=== PATIENT | female | born 1980 | race African-American/Black ===

== ENCOUNTER 2022-04-06 04:28 | Day surgery (SDC) | payer OTHER ==
[2022-04-05 09:12] VITALS: BMI 25.0
[2022-04-06] MEDS ORDERED: LIDOCAINE HCL 1%, 10 MG/ML (20ML VIAL) ONE (07:28)
[2022-04-06] MEDS ORDERED: MIDAZOLAM HCL 2 MG/2 ML SINGLE DOSE VIAL ONE (11:35)
[2022-04-06] MEDS ORDERED: ceFAZolin SODIUM 1 GM VIAL IVPB ONE (11:55)
[2022-04-06] MEDS ORDERED: LIDOCAINE HCL 1%, 10 MG/ML (20ML VIAL) NR ONE (12:03)
[2022-04-06] MEDS ORDERED: PROPOFOL 20 ML ONE (12:19)
[2022-04-06] MEDS ORDERED: ONDANSETRON 4 MG/2 ML VIAL IVPUSH PRN (12:34)
[2022-04-06] MEDS ORDERED: oxyCODONE HCL 5 MG TABLET PO PRN (12:34)
[2022-04-06] MEDS ORDERED: ACETAMINOPHEN 325 MG TABLET (FP) PO PRN (12:34)
[2022-04-06 13:21] VITALS: RESP 16; TEMP 97.3
[2022-04-06 13:57] VITALS: BP 136/83; PULSE 83
[2022-04-06] MEDS ORDERED: ACETAMINOPHEN 325 MG TABLET (FP) ONE (14:00)
[2022-04-06] MEDS ORDERED: ACETAMINOPHEN 325 MG TABLET (FP) PO ONE (14:00)
== END 2022-04-06 14:10 | disposition home or self-care (01) ==
LOC: JASU-SURG 04:28
PROVIDERS: ATTEND Surgery
PROC: 0HBT0ZZ Excision of Right Breast, Open Approach (ICD-10-PCS; principal; 2022-04-06 10:00)
DX: N60.22 Fibroadenosis of left breast (principal)
CPT/HCPCS: 19281; 76098-TC-FY; 81025; 88307-TC; 94760